=== PATIENT | male | born 1945 | race Caucasian/White ===

== ENCOUNTER 2019-04-17 09:14 | Inpatient (IN) | payer MEDICARE, OTHER ==
[~2019-04-17] VITALS: Ht 177.8 cm; Wt 64.4 kg
--- NOTE | 2019-04-17 09:21 | NUR ---
bib ra 8[address], from the street, c/o BLE numbness x 1 week, denies any pain. on room air, breathing evenly and unlabored, kept comfortable, connected to the monitor and pulse ox. will continue to monitor accordingly.
--- NOTE | 2019-04-17 09:34 | NUR ---
SEEN AND EXAMINED BY
--- NOTE | 2019-04-17 09:40 | NUR ---
ER PHLEB AT BEDSIDE FOR BLOOD DRAW.
[2019-04-17 09:45] LABS: BASOPHILS # (AUTO) 0.1 /CMM (0.0-0.2); BASOPHILS % (AUTO) 0.5 % (0.0-2.0); EOSINOPHILS % (AUTO) 1.4 % (0.0-6.0); HEMATOCRIT 45 % (39-51); HEMOGLOBIN 15.3 g/dL (13.5-17.5); LYMPHOCYTES # (AUTO) 1.7 /CMM (0.8-4.8); LYMPHOCYTES % (AUTO) 15.1 % (20.0-44.0); MEAN CORPUSCULAR HGB CONC 34 g/dl (31.0-36.0); MEAN CORPUSCULAR VOLUME 105 fL (80-96); MONOCYTES # (AUTO) 1.1 /CMM (0.1-1.30); MONOCYTES % (AUTO) 9.5 % (2.0-12.0); NEUTROPHILS # (AUTO) 8.4 /CMM (1.8-8.9); NEUTROPHILS % (AUTO) 73.5 % (43.0-81.0); PLATELET COUNT (AUTO) 220 /CMM (150-450); RED BLOOD CELL COUNT(AUTO) 4.31 MIL/uL (4.5-6.0); WHITE BLOOD COUNT (AUTO) 11.4 K/uL (4.3-11.0)
[2019-04-17 10:04] LABS: CALCIUM, SERUM 10.3 mg/dL (8.5-10.1); CREATININE 0.7 mg/dL (0.6-1.3); POTASSIUM 3.6 mmol/L (3.5-5.1)
[2019-04-17 10:09] LABS: MAGNESIUM 1.5 mg/dL (1.8-2.4); PHOSPHORUS 3.7 mg/dL (2.5-4.9)
[2019-04-17] MEDS ORDERED: Magnesium 1 GM/2 ML VIAL IV ONE (10:30)
[2019-04-17] MEDS ORDERED: IV NS 0.9% 1,000 ML BAG IV ONE (10:30)
[2019-04-17] MEDS ORDERED: Magnesium 1GM/D5W 100ML PREMIX 200 ML IV ONE (10:41)
--- NOTE | 2019-04-17 10:55 | NUR ---
IV LINE ESTABLISHED. L AC G18
--- NOTE | 2019-04-17 11:32 | NUR ---
CALLED CASE JESSICAER FOR PT EVAL.
--- NOTE | 2019-04-17 11:51 | NUR ---
FOOD TRAY PROVIDED.
--- NOTE | 2019-04-17 12:37 | NUR ---
Social service consult requested by Dr. Pa for homelessness and SNF placement. Pt. is a 74 year old male with history of remote left elbow injury, no other significant past medical history, currently presented with endorsement of bilateral feet paresthesias described as a tingling sensation, long-standing but worse over the prior one week. Pt. states that he has had intermittent problems of the feet and feels that the altered sensation sometimes makes him off balance. Per pt. he has frequent mechanical falls related to those paresthesias. Pt. was accompanied bedside with [facility] Homeless Engagement team members Chapo Fernandes and Kadie Gallardo . Pt is alert and oriented x 4. Pt. has been homeless for the past 6months after his motor home was impounded. Pt. appeared dirty and disheveled. Pt. was cooperative and pleasant with SW during the assessment. Pt. Of note, Pt's footwear and socks were soaked through on arrival, and his feet were cold. Pt. 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 Per Chapo and Kadie pt. will require SNF placement as he has difficulty caring for himself on the streets. SW informed them, she will inform family preservation caseworker who will find a SNF for the pt. Pt. drinks a pint of vodka daily with a lady friend. Pt. states he has been drinking for years. Pt. has history of marijuana use but states, he doesn't smoke anymore. Pt. smokes 1 1/2 pack of cigarettes daily. Pt. informed SW he was in a halfway " [facility]" 8 to 9 months ago but left the facility and hasn't been in a halfway since then. SW informed pt. he will be admitted to [facility] and will be discharged to a halfway when medically cleared. Pt. agreed. No other social service needs are requested at this time. SW is available, if needed.
--- NOTE | 2019-04-17 14:12 | NUR ---
ROOM GIVEN [id number]
--- NOTE | 2019-04-17 14:15 | NUR ---
REPORT GIVEN TO MAGDALENA ANSARI FOR OLI
[2019-04-17 16:00] VITALS: BP 120/68
--- NOTE | 2019-04-17 16:00 | NUR ---
ms rn received a new admission from er,74 year old male, awake,alert,oriented x4,came in w/ dx of neurapathic pain on both legs,unable to take care of self.admitted by zabrina tavares w/ orders made and carried out, noted to have a left hip and bilateral buttocks reddish discoloration/rashes, denies pain at this time, all needs attended.
[2019-04-17 18:00] VITALS: BP 132/89
[2019-04-17] MEDS ORDERED: ONDANSETRON HCL/PF 4 MG/2 ML VIAL IVP PRN (18:00)
[2019-04-17] MEDS ORDERED: Z GUARD REMEDY 2 OZ OINT TP PRN (18:00)
[2019-04-17] MEDS ORDERED: Thiamine 100 MG in IV D5W 50 ML IV SCH (18:00)
[2019-04-17] MEDS ORDERED: ACETAMINOPHEN 325 MG TABLET PO PRN (18:00)
[2019-04-17] MEDS ORDERED: ZOLPIDEM TARTRATE 5 MG TABLET PO PRN (18:00)
[2019-04-17] MEDS: IV NS 0.9% 1,000 ML IV PRN (18:48)
[2019-04-17] MEDS: ENOXAPARIN SODIUM 40 MG/0.4 ML DISP.SYRIN SQ SCH (18:49)
--- NOTE | 2019-04-17 18:50 | NUR ---
ms rn due meds given,except thiamine iv w/c is not available, rx notified.
--- NOTE | 2019-04-17 19:12 | NUR ---
ms rn on bed, no distress noted, endorsed to restaurant shift supervisor for christie.
--- NOTE | 2019-04-17 19:15 | NUR ---
RN medsurkristel opening notes Received Pt from morning nurse. Pt is resting in bed comfortably. Pt is alert and orientedX4. Respiration is normal in room air. No SOB. No nausea or vomiting. Pt denies any pain or discomfort at this time. IV sites at LAC# 18 is clean, intact, patent and infusing well NS @ 75 ml/hr. Instructed to call. Safety precautions is maintained. Bed at low position, brakes locked, side rails upX3 and call light is within reach. Will continue to monitor.
--- NOTE | 2019-04-17 19:35 | NUR ---
MAGDALENA hermosillo notes Echo at the bedside. Will continue to monitor.
[2019-04-17 20:00] VITALS: BP 121/69
[2019-04-17 20:43] VITALS: BP 121/69
--- NOTE | 2019-04-18 07:00 | NUR ---
RN medsurg notes Pt is resting in bed comfortably. Pt is alert and orientedX4. Respiration is normal. No SOB. No nausea or vomiting. No S/s of distress noted. IV sites at LAC# 20 is clean, intact, patent and infuising well NS@ 75 ml/Hr. VS is stable. Skin care provided. Pt tolerated well. Kept Pt clean, dry and comfortable. All needs met and attended. Safety precautions is maintained. Bed at low position, brakes locked, side rails upx3 and call light is within reach. Will endorse to morning nurse for OLI.
--- NOTE | 2019-04-18 07:31 | NUR ---
RN OPENING NOTES RECEIVED PATIENT IN BED RESTING. A/OX4, ABLE TO MAKE NEED KNOWN. NOT IN ANY FORM OF DISTRESS, NO SOB. DENIED PAIN OR DISCOMFORT AT THIS TIME. IV ACCESS INTACT AND PATENT. NEEDS ATTENDED. KEPT PATIENT SAFE AND COMFORTABLE. BED IN LOW/LOCKED POSITION SIDERAILS UPX2, CALL LIGHT IN REACH. WILL CONTINUE TO MONITOR ACCORDINGLY.
[2019-04-18 07:41] LABS: BASOPHILS % (AUTO) 0.7 % (0.0-2.0); EOSINOPHILS % (AUTO) 2.5 % (0.0-6.0); HEMATOCRIT 38 % (39-51); HEMOGLOBIN 12.8 g/dL (13.5-17.5); LYMPHOCYTES # (AUTO) 1.5 /CMM (0.8-4.8); LYMPHOCYTES % (AUTO) 21.9 % (20.0-44.0); MEAN CORPUSCULAR HGB CONC 34 g/dl (31.0-36.0); MEAN CORPUSCULAR VOLUME 105 fL (80-96); MONOCYTES % (AUTO) 13.9 % (2.0-12.0); NEUTROPHILS # (AUTO) 4.2 /CMM (1.8-8.9); PLATELET COUNT (AUTO) 178 /CMM (150-450); RED BLOOD CELL COUNT(AUTO) 3.66 MIL/uL (4.5-6.0); WHITE BLOOD COUNT (AUTO) 6.9 K/uL (4.3-11.0)
[2019-04-18 07:53] LABS: ALANINE AMINOTRANSFERASE 21 U/L (12-78); ALBUMIN 2.6 g/dL (3.4-5.0); ALKALINE PHOSPHATASE 55 U/L (46-116); ASPARTATE AMINOTRANSFERASE 23 U/L (15-37); BILIRUBIN,TOTAL 0.7 mg/dL (0.2-1.0); CALCIUM, SERUM 8.9 mg/dL (8.5-10.1); CARBON DIOXIDE 31 mmol/L (21-32); CHLORIDE 101 mmol/L (98-107); CREATININE 0.5 mg/dL (0.6-1.3); GLUCOSE 108 mg/dL (74-106); MAGNESIUM 1.5 mg/dL (1.8-2.4); PHOSPHORUS 3.1 mg/dL (2.5-4.9); POTASSIUM 3.1 mmol/L (3.5-5.1); SODIUM SERUM 136 mmol/L (136-145); TOTAL PROTEIN, SERUM 5.8 g/dL (6.4-8.2); UREA NITROGEN, BLOOD 9 mg/dL (7-18)
[2019-04-18 08:07] LABS: CHOLESTEROL 155 mg/dL (<200); HDL CHOLESTEROL 60 mg/dL (40-60); LDL 81 mg/dL (0-99); THYROID STIMULATING HORMONE 0.706 uIU/mL (0.358-3.74); TRIGLYCERIDES 73 mg/dL (30-150)
[2019-04-18] MEDS: MULTIVITAMINS,THERAGRAN 1 UDTAB TABLET PO SCH (08:21)
[2019-04-18] MEDS: FOLIC ACID 1 MG TABLET PO SCH (08:21)
[2019-04-18] MEDS: THIAMINE HCL 100 MG TABLET PO SCH (08:21)
[2019-04-18 08:44] LABS: IRON, SERUM 90 ug/dl (50-175); TOTAL IRON BINDING CAPACITY 194 ug/dl (250-450)
[2019-04-18 09:46] VITALS: BP 119/77
[2019-04-18] MEDS ORDERED: POTASSIUM CHLORIDE 20 MEQ TAB.PRT.SR PO SCH (11:30)
[2019-04-18] MEDS: Magnesium 1GM/D5W 100ML PREMIX 100 ML IV SCH ×2 (11:49→13:44)
[2019-04-18 16:00] VITALS: BP 101/59
--- NOTE | 2019-04-18 17:47 | NUR ---
Patient report he is currently homeless and will need placement when discharge. supervisor hand workers evaluated patient at bedside. Patient is a 74 year old male with history of remote left elbow injury, no other significant past medical history, currently presented with endorsement of bilateral feet paresthesias described as a tingling sensation, long-standing but worse over the prior one week. He states that he has had intermittent problems of the feet and feels that the altered sensation sometimes makes him off balance. States he has frequent mechanical falls related to those paresthesias. Patient was accompanied bedside with [facility] Homeless Engagement team members Chapo Fernandes and Kadie Gallardo . Patient is alert and oriented x 4. He has been homeless for the past 6months after his motor home was impounded. He appeared dirty and disheveled. Patient was cooperative and pleasant with SW during the assessment. Patient Of note, Patient's footwear and socks were soaked through on arrival, and his feet were cold. Patient got teary eyed when he mentioned all his art work was gone when the city impounded his motor home. Per Chapo and Kadie pt. will require SNF placement as he has difficulty caring for himself on the streets. Patient drinks a pint of vodka daily with a lady friend. He states he has been drinking for years. He has history of marijuana use but states, he doesn't smoke anymore. Patient smokes 1 1/2 pack of cigarettes daily. Patient informed SW he [place] in [place] " [facility]" 8 to 9 months ago but left the facility and hasn't been in a [place] since then. SW informed patient he will be admitted to [facility] and will be discharged to a [place] when medically cleared. Patient agreed. Addendum: 04/18/19 at 1747 by LOLI RESTREPO RN Amended: Links added.
[2019-04-18] MEDS: IV NS 0.9% 1,000 ML IV PRN (18:10)
--- NOTE | 2019-04-18 19:20 | NUR ---
RN medsur opening notes Pt is resting in bed comfortably watching TV. Pt is alert and orientedX4. Respiration is normal in room air. No SOB. No nausea or vomiting. Pt denies any pain or discomfort at this time. IV sites at LAC# 20 is clean, intact, patent and infusing well NS @ 75 ml/hr. Instructed to call. Safety precautions is maintained. Bed at low position, brakes locked, side rails upX3 and call light is within reach. Will continue to monitor.
--- NOTE | 2019-04-18 19:25 | NUR ---
RN CLOSING NOTES PATIENT IN STABLE CONDITION. ALL NEEDS ATTENDED AND PROVIDED. ALL DUE MEDS GIVEN ORDERED. KEPT PATIENT SAFE AND COMFORTABLE. BED IN LOW/LOCKED POSITION, SIDERAILS UPX2,CALL LIGHT IN REACH. ENDORSED TO NIGHT RN FOR OLI.
[2019-04-18 20:00] VITALS: BP 121/78
[2019-04-18] MEDS: ENOXAPARIN SODIUM 40 MG/0.4 ML DISP.SYRIN SQ SCH (20:16)
--- NOTE | 2019-04-18 22:49 | NUR ---
Met with patient, he is alert and pleasant. Has no next of kin listed. States he has a daughter in [place] but does not want to get involved with his care, has a sister that lives locally but has been estrange to him. He want to go to [facility] on discharge. [facility] referral faxed to [facility] [phone] per patient request. Addendum: 04/18/19 at 2250 by LOLI RESTREPO RN Amended: Links added.
[2019-04-19 07:00] LABS: CALCIUM, SERUM 8.8 mg/dL (8.5-10.1); CREATININE 0.6 mg/dL (0.6-1.3); MAGNESIUM 1.5 mg/dL (1.8-2.4); POTASSIUM 3.7 mmol/L (3.5-5.1)
--- NOTE | 2019-04-19 07:00 | NUR ---
RN medsurg closing notes Pt is resting in bed comfortably. Awaken easily. Respiration is normal. No SOB. No S/S of distress noted. IV sites at LAC # 20 is clean, intact, patent and infusing well NS @ 75 ml/hr. Routine meds were given as ordered. Kept Pt clean, dry and warm. All needs met and attended. Instructed to call. Safety precautins is maintained all the time. Bed at low position, brakes locked, side rails upX2 and call light is renuka leal. Will endorse to morning nurse for OLI.
--- NOTE | 2019-04-19 07:33 | NUR ---
RN MS OPENING NOTES Received patient on room air, no sob noted, patient denies pain at this time. Patient with L AC #20 with NS @ 75 ml per hour. Bed at the lowest setting, call light within reach, side rails up x2.
[2019-04-19] MEDS: THIAMINE HCL 100 MG TABLET PO SCH (08:06)
[2019-04-19] MEDS: FOLIC ACID 1 MG TABLET PO SCH (08:06)
[2019-04-19] MEDS: MULTIVITAMINS,THERAGRAN 1 UDTAB TABLET PO SCH (08:06)
[2019-04-19 09:59] VITALS: BP_SYST 128; BP_SYST 132; BP_DIAS 60; BP_DIAS 84
--- NOTE | 2019-04-19 10:03 | NUR ---
CHAKA was informed by case planner Sherine that pt. has been accepted [facility] and will be discharged tomorrow. CHAKA contacted KENNETH Sears social media specialist and updated him regarding pt. going [place] [facility] tomorrow. CHAKA gave him [facility] address and contact information.
[2019-04-19] MEDS: Magnesium 1GM/D5W 100ML PREMIX 100 ML IV SCH ×2 (10:32→12:41)
--- NOTE | 2019-04-19 11:19 | NUR ---
WOUND CARE CONSULT: PT PRESENTS WITH RASH TO BUTTOCKS AND LEFT HIP/THIGH AREA WITH DRY WOUND AND UNSTAGEABLE WOUND TO SACRUM, PRESENT ON ADMISSION. RT HEEL CALLUS NOTED. PT STATES HAS NEUROPATHY IN HIS FEET. RECOMMENDATIONS MADE FOR SKIN PROTECTION. DISCUSSED WITH NURSING STAFF. PT REQUESTING CONDOM CATH. RECOMMEND SURGICAL CONSULT. DR PICKETT NOTIFIED. WILL SEE PRN. REYNOLDS IN AGREEMENT WITH PLAN OF CARE. [facility] AIR[facility]OSS [facility] TO BE PLACED. CURRENT [place] SCORE IS 15. Addendum: 04/19/19 at 1123 by ANTONIETA AKBAR WNDNU Amended: Links added.
[2019-04-19] MEDS: HYDROCODONE/APAP 5/325MG 1 EACH TABLET PO PRN ×2 (11:25→21:33)
[2019-04-19] MEDS: CLOTRIMAZOLE/BETAMETASONE DIPROPIONATE 15 GM TUBE TP SCH ×2 (14:00→17:11)
[2019-04-19] MEDS: HYDROGEL DRESSING 90 GM TUBE TP SCH (14:00)
[2019-04-19 16:28] VITALS: BP 117/70
[2019-04-19] MEDS: NICOTINE PATCH (21MG) 21 MG PATCH.TD24 TD SCH (18:19)
--- NOTE | 2019-04-19 18:30 | NUR ---
RN CLOSING NOTES Patient remains on rooma ir, no sob noted, patient denies pain at this time and remains a/o x4. L AC #20 normal saline 75 ml per hour. possible d/c tomorrow. Patient denies any discomfort from his leg, wound care done by the wound nurse. Bed at the lowest setting, call light within reach, side rails up x2. Will give report to NOC RN for OLI bedside.
--- NOTE | 2019-04-19 19:15 | NUR ---
MS RN NOTES RECEIVED ON BED A/O X4,ABLE TO VERBALIZED NEEDS,IVF NS AT 75ML/HR RATE IN PROGRESS ON LEFT AC VIA IV PUMP,C/O LEG PAIN 4/10 ON PAIN SCALE,WILL MEDICATE.CALL LIGHT IN REACH,NEEDS ANTICIPATED.
[2019-04-19 20:00] VITALS: BP 132/74
[2019-04-19] MEDS: ENOXAPARIN SODIUM 40 MG/0.4 ML DISP.SYRIN SQ SCH (20:30)
[2019-04-19 23:15] VITALS: BP 150/98
[2019-04-20] MEDS: IV NS 0.9% 1,000 ML IV PRN (01:27)
--- NOTE | 2019-04-20 06:28 | NUR ---
MS RN NOTES SLEPT WITH INTERVALS,PAIN MANAGEMENT EFFECTIVE,IVF IN PROGRESS.POSSIBLE DISCHARGE TO [facility] WHEN MEDICALLY STABLE.CALL LIGHT IN REACH,NEEDS ANTICIPATED.
--- NOTE | 2019-04-20 07:41 | NUR ---
RN MS OPENING NOTES Patient received on room air, no sob noted, patient denies pain at this time. Comfortably lying down in bed. A/O x4 with NS #20 AC @ 75 ml per hour. Bed at the lowest setting, call light within reach, side rails up x2. Will continue to monitor patient at this time.
[2019-04-20 08:02] LABS: CALCIUM, SERUM 8.7 mg/dL (8.5-10.1); CREATININE 0.6 mg/dL (0.6-1.3); MAGNESIUM 1.5 mg/dL (1.8-2.4)
[2019-04-20] MEDS: NICOTINE PATCH (21MG) 21 MG PATCH.TD24 TD SCH (08:25)
[2019-04-20] MEDS: FOLIC ACID 1 MG TABLET PO SCH (08:25)
[2019-04-20] MEDS: THIAMINE HCL 100 MG TABLET PO SCH (08:25)
[2019-04-20] MEDS: MULTIVITAMINS,THERAGRAN 1 UDTAB TABLET PO SCH (08:25)
[2019-04-20 08:31] VITALS: BP 136/73
[2019-04-20] MEDS: HYDROGEL DRESSING 90 GM TUBE TP SCH (08:32)
[2019-04-20] MEDS: CLOTRIMAZOLE/BETAMETASONE DIPROPIONATE 15 GM TUBE TP SCH ×3 (08:32→17:06)
[2019-04-20] MEDS: Magnesium 1GM/D5W 100ML PREMIX 100 ML IV SCH ×2 (12:44→13:59)
[2019-04-20] MEDS ORDERED: ENSURE ENLIVE 237 ML LIQUID (VANILLA) PO SCH (13:00)
[2019-04-20 16:00] VITALS: BP 134/80
[2019-04-20] MEDS ORDERED: CLOT15CR5 TP (16:06)
[2019-04-20] MEDS ORDERED: Thiamine HCL PO (16:06)
[2019-04-20] MEDS ORDERED: Hydrogel Dressing TP (16:06)
[2019-04-20] MEDS ORDERED: NICO-677 TD (16:06)
[2019-04-20] MEDS ORDERED: Folic Acid PO (16:06)
[2019-04-20] MEDS ORDERED: MULT-24 PO (16:06)
--- NOTE | 2019-04-20 17:58 | NUR ---
D/C NOTES RN Patient discharged at this time. No sob noted, patient shows no distress, and states that he is comfortable. IV line removed with minimal bleeding. Patient tag removed and thrown away. EMT's have the necessary paperwork, patient signed the discharge papers and belongings list and states that nothing is missing. Called [facility] for report with good communication. Patient refused photos and stated that it was not necessary. Patient refused x3.
== END 2019-04-20 18:14 | DRG 73 ==
LOC: ER 09:20 → TELE 14:35 → MED 18:04
PROVIDERS: ADMIT Nurse Practitioner Acute Care; ATTEND Nurse Practitioner Acute Care
DX: G62.1 Alcoholic polyneuropathy (principal); L89.223 Pressure ulcer of left hip, stage 3; E11.65 Type 2 diabetes mellitus with hyperglycemia; E83.42 Hypomagnesemia; Z59.0 Homelessness; E83.52 Hypercalcemia; F10.20 Alcohol dependence, uncomplicated; Y90.9 Presence of alcohol in blood, level not specified; D72.829 Elevated white blood cell count, unspecified; D75.89 Other specified diseases of blood and blood-forming organs; L30.4 Erythema intertrigo; R32 Unspecified urinary incontinence; F17.210 Nicotine dependence, cigarettes, uncomplicated; Z91.81 History of falling
CPT/HCPCS: 36415; 80048-TC; 80053-TC; 80061-TC; 83540-TC; 83735-TC; 84100-TC; 84425; 84443-TC; 85025-TC; 87081-TC; 93307-TC; A4349; A6248; G0378; J1650; J3411; J3475; J7030; J7060

== ENCOUNTER 2019-05-25 15:18 | Emergency (ER) | payer MEDICARE, OTHER ==
[~2019-05-25] VITALS: Ht 177.8 cm; Wt 63.5 kg
[~2019-05-25 15:18] MED LIST: CLOT15CR5 TP; Folic Acid PO; Hydrogel Dressing TP; MULT-24 PO; NICO-677 TD; Thiamine HCL PO
--- NOTE | 2019-05-25 15:30 | NUR ---
KILLIAN FROM [facility]ED WITH [facility] C/O RASH IN THE NECK AND REFUSING MEDS, PT AWAKE, ALERT, -SOB, NAD NOTED, VSS ,PENDIND MD MATTHEWS
[2019-05-25] MEDS ORDERED: THIA100T74 PO (15:37)
[2019-05-25] MEDS ORDERED: FOLI0.8T PO (15:37)
[2019-05-25] MEDS ORDERED: PERM60CR6 TP (15:37)
[2019-05-25] MEDS ORDERED: DIPH25TA62 PO (15:37)
[2019-05-25] MEDS ORDERED: DIPH25CA51 PO (15:37)
[2019-05-25] MEDS ORDERED: IVER3TAB2 PO (15:37)
[2019-05-25] MEDS ORDERED: NICO-676 TD (15:37)
[2019-05-25] MEDS ORDERED: MULT-447 PO (15:37)
[2019-05-25] MEDS ORDERED: IBUP-1957 PO (15:37)
[2019-05-25 16:47] LABS: BASOPHILS # (AUTO) 0.1 /CMM (0.0-0.2); BASOPHILS % (AUTO) 0.6 % (0.0-2.0); EOSINOPHILS % (AUTO) 5.3 % (0.0-6.0); HEMATOCRIT 38 % (39-51); HEMOGLOBIN 12.7 g/dL (13.5-17.5); LYMPHOCYTES % (AUTO) 17.2 % (20.0-44.0); MEAN CORPUSCULAR HGB CONC 34 g/dl (31.0-36.0); MEAN CORPUSCULAR VOLUME 99 fL (80-96); MONOCYTES # (AUTO) 1.3 /CMM (0.1-1.30); NEUTROPHILS # (AUTO) 7.5 /CMM (1.8-8.9); NEUTROPHILS % (AUTO) 65.9 % (43.0-81.0); PLATELET COUNT (AUTO) 367 /CMM (150-450); RED BLOOD CELL COUNT(AUTO) 3.83 MIL/uL (4.5-6.0); WHITE BLOOD COUNT (AUTO) 11.4 K/uL (4.3-11.0)
[2019-05-25 16:59] LABS: CARBON DIOXIDE 28 mmol/L (21-32); CHLORIDE 104 mmol/L (98-107); CREATININE 0.5 mg/dL (0.6-1.3); GLUCOSE 112 mg/dL (74-106); SODIUM SERUM 139 mmol/L (136-145); UREA NITROGEN, BLOOD 9 mg/dL (7-18)
[2019-05-25 17:04] LABS: ALANINE AMINOTRANSFERASE 15 U/L (12-78); ALBUMIN 2.6 g/dL (3.4-5.0); ALKALINE PHOSPHATASE 52 U/L (46-116); ASPARTATE AMINOTRANSFERASE 14 U/L (15-37); BILIRUBIN,DIRECT 0.1 mg/dL (0.0-0.2); BILIRUBIN,TOTAL 0.2 mg/dL (0.2-1.0); TOTAL PROTEIN, SERUM 6.3 g/dL (6.4-8.2)
--- NOTE | 2019-05-25 17:29 | NUR ---
ALL FONTAINE 1928 TRIP#[id number]
--- NOTE | 2019-05-25 19:39 | NUR ---
mirza updated eta 1943
[2019-05-25 20:11] VITALS: BP 136/92
--- NOTE | 2019-05-25 20:11 | NUR ---
DR. Olsen SPOKE TO NURSING SUP AT [facility] REGARDING PT'S DISCHARGE, PER MD, IT IS NOT SCABIES, D/C PAPERS GIVEN TO STAFF
== END 2019-05-25 20:53 | disposition home or self-care (01) ==
LOC: ER 15:19
DX: B37.9 Candidiasis, unspecified (principal); F17.200 Nicotine dependence, unspecified, uncomplicated; E11.9 Type 2 diabetes mellitus without complications; D64.9 Anemia, unspecified; Z79.899 Other long term (current) drug therapy
CPT/HCPCS: 36415; 80048-TC; 80076-TC; 85025-TC